=== PATIENT | male | born 1955 | race Caucasian/White ===

== ENCOUNTER 2017-11-28 09:20 | Outpatient (CLI) | payer OTHER | END 2017-11-28 09:21 | disposition home or self-care (01) | LOC: LAB.F 09:20 | PROVIDERS: ATTEND Internal Medicine | DX: M1A.00X0 Idiopathic chronic gout, unspecified site, without tophus (tophi) (principal) | CPT/HCPCS: 36415; 84550 ==

== ENCOUNTER 2018-10-30 11:07 | Outpatient (CLI) | payer OTHER, MEDICARE ==
--- NOTE | 2018-10-30 12:15 | XRAY Report ---
Reason: PAIN IN LEFT FOOT Procedure Date: 10/30/2018 Accession Number: [id number] / [id number] Procedure: XR - Foot 2 View LT CPT Code: FULL RESULT: EXAM: LEFT FOOT RADIOGRAPHY EXAM DATE: 10/30/2018 11:14 AM. CLINICAL HISTORY: PAIN IN LEFT FOOT. COMPARISON: None. TECHNIQUE: 3 views. FINDINGS: Bones: Small posterior and plantar calcaneal bone spurs. No acute fracture. Joints: Normal. No subluxations. Soft Tissues: Mild soft tissue swelling in the lateral forefoot and medial forefoot respectively. Subtle soft tissue calcifications adjacent to fifth metatarsal head. Linear calcification adjacent to first metatarsal head. IMPRESSION: 1. No acute bony abnormality. 2. Soft tissue calcifications and soft tissue swelling as described above. Gout is not excluded. [facility]
== END 2018-10-30 11:08 | disposition home or self-care (01) ==
LOC: DI 11:07
PROVIDERS: ATTEND Nurse Practitioner Family
DX: M79.672 Pain in left foot (principal)

== ENCOUNTER 2023-09-06 08:00 | Outpatient (CLI) | payer MEDICARE, OTHER | END 2023-09-06 23:59 | disposition home or self-care (01) | LOC: LAB.S 08:00 | PROVIDERS: ATTEND Emergency Medicine | DX: L72.3 Sebaceous cyst (principal) | CPT/HCPCS: 87070; 87205 ==

== ENCOUNTER 2024-03-19 11:32 | Outpatient (CLI) | payer MEDICARE, OTHER ==
[2024-03-19 12:11] LABS: ALBUMIN 4.2 g/dL (3.2-5.5); BILIRUBIN,TOTAL 0.5 mg/dL (0.2-1.0); CALCIUM 8.9 mg/dL (8.5-10.3); CREATININE 0.9 mg/dL (0.6-1.3); POTASSIUM 4.3 mmol/L (3.5-4.5); TOTAL PROTEIN 6.3 g/dL (6.4-8.9); URIC ACID 4.8 mg/dL (4.4-7.6)
== END 2024-03-19 11:33 | disposition home or self-care (01) ==
LOC: LAB 11:32
PROVIDERS: ATTEND Internal Medicine
DX: M1A.9XX1 Chronic gout, unspecified, with tophus (tophi) (principal)
CPT/HCPCS: 36415; 80053; 84550; 85025